=== PATIENT | female | born 1960 | race Caucasian/White ===

== ENCOUNTER 2020-11-11 21:13 | Emergency (ER) | payer OTHER, SELFPAY ==
[2020-11-11 21:15] VITALS: BP 147/75; PULSE 82; RESP 16; TEMP 35.6; O2SAT 96; BMI 35.5
[2020-11-11 22:00] LABS: MANUAL DIFF FLAG NO
[2020-11-11 22:01] LABS: Basophils Percent Auto 0.3 % (0-2); Eosinophils Absolute Auto 0.2 X10*3/uL (0.0-0.4); Eosinophils Percent Auto 2.1 % (0-4); Hematocrit 41.1 % (37-47); Hemoglobin 13.9 g/dl (12.0-16.0); Imm Gran Abs Auto 0.02 X10*3/uL (0.00-0.03); Imm Gran Pct Auto 0.3 % (0.0-0.4); Lymphocytes Absolute Auto 2.7 X10*3/uL (1.2-4.9); Lymphocytes Percent Auto 37.9 % (20-40); Mean Corpuscular HGB Conc 33.8 g/dl (31.0-35.0); Mean Corpuscular Volume 85.6 fL (80-98); Mean Platelet Volume 9.4 fL (9.4-12.3); Monocytes Absolute Auto 0.8 X10*3/uL (0.1-1.2); Monocytes Percent Auto 10.6 % (2-11); Neutrophils Absolute Auto 3.5 X10*3/uL (2.0-8.3); Neutrophils Percent Auto 48.8 % (45-73); Platelet Count 294 X10*3/uL (160-400); Red Cell Distribution Width 12.9 % (11.0-16.0); White Blood Count 7.1 X10*3/uL (4.8-10.8)
[2020-11-11 22:21] LABS: Alanine Aminotransferase 55 U/L (0-31); Albumin Level 4.4 g/dL (3.5-5.0); Alkaline Phosphatase 79 U/L (39-117); Anion Gap 13 (12-20); Aspartate Amino Transferase 32 U/L (5-31); Bilirubin Direct < 0.2 mg/dL (0.0-0.5); Bilirubin Total 0.3 mg/dL (0.0-1.0); Blood Urea Nitrogen 20 mg/dL (9-16); Calcium 9.7 mg/dL (8.4-10.2); Carbon Dioxide 26 mmol/L (22-29); Chloride 105 mmol/L (96-108); Creatinine Clr Calc Pharmacy 76.8; Estimated Glomerular Filt Rate > 60; Glucose Random 112 mg/dL (60-115); Potassium 3.8 mmol/L (3.3-5.1); Sodium 140 mmol/L (135-145); Total Protein 6.9 g/dL (6.5-8.0)
--- NOTE | 2020-11-11 22:28 | ED_ITS ---
HPI - Medical Clearance General Chief complaint: Body Fluid Exposure Stated complaint: Work Inj Time Seen by Provider: 11/11/20 21:15 Source: patient Mode of arrival: ambulatory Limitations: no limitations History of Present Illness HPI Narrative: Veronica was working this evening in the emergency room, she was suturing a patient who is known to be HIV positive. She has a densely stuck herself with a needle, went through the glove, broke the skin, there was a small amount of bleeding. Patient immediately clean her hands and disinfected it. The patient who was receiving the sutures states that he is currently undergoing HIV treatment, states that his viral load has been undetectable for about 6-7 years. He agrees to have blood drawn given the situation Related Information Previous Rx's Medication Instructions Recorded emtricitabine 200 mg-tenofovir 1 tab PO DAILY #28 tab 11/11/20 disoproxil fumarate 300 mg tablet (Truvada) Allergies Allergy/AdvReac Type Severity Reaction Status Date / Time No Known Allergies Allergy Verified 11/11/20 21:16 Review of Systems Review of Systems: Constitutional : No Weight loss, No Fever, No Chills, No Night Sweats, No Fatigue, No Malaise ENT/Mouth : No Hearing loss, No Ear Pain, No Nasal Congestion, No Sinus Pain, No Hoarseness, No sore throat, No Rhinorrhea, No Swallowing Difficulty Eyes: No Eye Pain, No Swelling, No Redness, No Foreign Body, No Discharge, No Vision Changes Cardiovascular : No Chest Pain, No SOB, No Dyspnea on Exertion, No Orthopnea, No Edema, No Palpitations Respiratory : No Cough, No Sputum, No Wheezing, No Smoke Exposure, No Dyspnea Gastrointestinal : No Nausea, No Vomiting, No Diarrhea, No Constipation, No abdominal Pain, No Hematochezia, No Melena Genitourinary : no irregular bleeding, No Dysuria, No Urinary Frequency, No Hematuria, No Urinary Incontinence, No Urgency, No Flank Pain, No Urinary Flow Changes, No Hesitancy Musculoskeletal : No joint pain, No Myalgias, No Joint Swelling Skin : Needlestick to the left hand Neuro : No Weakness, No Numbness, No Paresthesias, No Loss of Consciousness, No Dizziness, No Headache Psych : No Anxiety/Panic, No Depression, No SI/HI/AH/VH, No Social Issues, Heme/Lymph: No Bruising, No Bleeding,No Lymphadenopathy Endocrine : No Polyuria, No Polydipsia, No Temperature Intolerance [facility] Past Medical History Medical History Hernia of abdominal wall HTN (hypertension) Surgical History History of appendectomy History of cholecystectomy History of hernia surgery Hx of section Social History Social History Advance Directives: No Patient : No Physical Exam Vital Signs: Vital Signs: Last Vital Signs Temp 96.1 F L 11/11/20 21:15 Pulse 82 11/11/20 21:15 Resp 16 11/11/20 21:15 BP 147/75 H 11/11/20 21:15 Pulse Ox 96 11/11/20 21:15 Body Mass Index 35.5 Const: Other: Appearance: Alert. Oriented X3. No acute distress. Eyes: Pupils equal, round and reactive to light. ENT: Pharynx normal. Neck: Normal inspection. Neck supple. No lymph nodes noted. No crepitus CVS: Normal heart rate and rhythm. Pulses normal. Normal S1 and S2 Respiratory: No respiratory distress. Breath sounds normal. No Wheezing. No rales Abdomen: Soft and nontender. No rigidity. No distention. good BS x4 Skin: Skin warm and dry. There is a small puncture wound to the left index lateral aspect, bleeding controlled, no obvious signs of infection Extremities: No lower extremity edema. No lower extremity edema. No Lacerations. No Rash Neuro: Oriented X 3. No motor deficit. No sensory deficit. Moving all exte rmities. No slurred speech. Course Course Course Narrative: I discussed the case with Dr. Grullon, patient will be started on Truvada for 28 days [facility] - Medical Clearance Lab Data Result diagrams: 11/11/20 21:49 11/11/20 21:49 Labs: Lab Results 11/11/20 11/11/20 Range/Units 21:49 21:49 WBC 7.1 (4.8-10.8) X10*3/uL RBC 4.80 (4.20-5.50) X10*6/uL Hgb 13.9 (12.0-16.0) g/dl Hct 41.1 (37-47) % MCV 85.6 (80-98) fL MCH 29.0 (27.0-33.0) pg MCHC 33.8 (31.0-35.0) g/dl RDW 12.9 (11.0-16.0) % Plt Count 294 (160-400) X10*3/uL MPV 9.4 (9.4-12.3) fL Immature Gran % (Auto) 0.3 (0.0-0.4) % Neut % (Auto) 48.8 (45-73) % Lymph % (Auto) 37.9 (20-40) % [place] % (Auto) 10.6 (2-11) % Eos % (Auto) 2.1 (0-4) % Baso % (Auto) 0.3 (0-2) % Lymph # (Auto) 2.7 (1.2-4.9) X10*3/uL [place] # (Auto) 0.8 (0.1-1.2) X10*3/uL Eos # (Auto) 0.2 (0.0-0.4) X10*3/uL Baso # (Auto) 0.0 (0.0-0.2) X10*3/uL Abs Immat Gran (auto) 0.02 (0.00-0.03) X10*3/uL Absolute Neuts (auto) 3.5 (2.0-8.3) X10*3/uL Absolute Nucleated RBC 0.000 (0.0-0.012) X10*3/uL Nucleated RBC % (auto) 0.0 (0.0-0.2) /100WBC Sodium 140 (135-145) mmol/L Potassium 3.8 (3.3-5.1) mmol/L Chloride 105 (96-108) mmol/L Carbon Dioxide 26 (22-29) mmol/L Anion Gap 13 (12-20) BUN 20 H (9-16) mg/dL Creatinine 0.94 (0.5-1.4) mg/dL Estim Creat Clear Calc 76.8 Estimated GFR > 60 Random Glucose 112 (60-115) mg/dL Calcium 9.7 (8.4-10.2) mg/dL Total Bilirubin 0.3 (0.0-1.0) mg/dL Direct Bilirubin < 0.2 (0.0-0.5) mg/dL AST 32 H (5-31) U/L ALT 55 H (0-31) U/L Alkaline Phosphatase 79 (39-117) U/L Total Protein 6.9 (6.5-8.0) g/dL Albumin 4.4 (3.5-5.0) g/dL Discharge Plan Discharge Clinical Impression: Human immunodeficiency virus (HIV) exposure from body fluids Patient Disposition: Home, Self-Care Additional Instructions: Please follow-up with your primary care physician tomorrow. If you have any worsening or new symptoms, please return to the emergency room or call 911 Prescriptions: New emtricitabine-tenofovir (TDF) [Truvada] 200-300 mg tablet 1 tab PO DAILY Qty: 28 RF: 0 Referrals: Karla Grullon MD [Physician] - 2 days
[2020-11-11 22:44] LABS: HIV AB/AG Nonreactive (Nonreactive)
[2020-11-14 04:07] LABS: HIV Num 1 0.07 S/CO (0.00-0.99)
[2020-11-14 04:21] LABS: HBc Num1 0.13 S/CO (0.00-0.79); HBsAGNum1 0.15 S/CO (0.00-0.99); Hepatitis B Core Antibody Nonreactive (Nonreactive); Hepatitis B Surface Antigen Negative (Negative)
[2020-11-14 04:27] LABS: HBS Num1 > 1000.00 mIU/mL (0-7.99); ~HepC Num1 0.12 S/CO (0.00-0.79); ~Hepatitis B Surface Antibody REACTIVE (Nonreactive); ~Hepatitis C Antibody Nonreactive (Nonreactive)
== END 2020-11-11 23:09 | disposition home or self-care (01) ==
PROVIDERS: Emergency Provider Emergency Medicine
DX: Z04.2 Encounter for examination and observation following work accident (principal); Z77.21 Contact with and (suspected) exposure to potentially hazardous body fluids; Z20.6 Contact with and (suspected) exposure to human immunodeficiency virus [HIV]
CPT/HCPCS: 36415; 80048; 80076; 85025; 86704; 86706; 86803; 87340; 87389; 99283

== ENCOUNTER → 2020-11-22 15:45 | Outpatient (BNVA) | payer OTHER, SELFPAY | PROVIDERS: Visit Provider Physician Assistant Medical | DX: Z77.21 Contact with and (suspected) exposure to potentially hazardous body fluids (principal) | CPT/HCPCS: 99203 ==

== ENCOUNTER → 2020-11-24 10:37 | Outpatient (BNVA) | payer OTHER, SELFPAY | DX: Z77.21 Contact with and (suspected) exposure to potentially hazardous body fluids (principal) | CPT/HCPCS: 36415; 82150; 82565; 84450; 84460; 85025 ==

== ENCOUNTER → 2021-01-12 10:01 | Outpatient (BNVA) | payer OTHER, SELFPAY | PROVIDERS: Visit Provider Physician Assistant Medical ==